=== PATIENT | male | born 1955 | race Two or more races ===

== ENCOUNTER 2022-05-27 05:55 | Day surgery (SDC) | payer OTHER ==
[~2022-05-27] VITALS: Ht 177.8 cm; Wt 83.9 kg
[~2022-05-27 05:55] MED LIST: NEXIUM PO
[2022-05-27] MEDS ORDERED: PEPCID AC20 MG PO (09:10)
[2022-05-27] MEDS ORDERED: PERCOCET 5-3251 EACH PO (09:10)
[2022-05-27] MEDS ORDERED: ZOFRAN8 MG PO (09:11)
[2022-05-27] MEDS ORDERED: DICLOFENAC SODI75 MG PO (09:11)
== END 2022-05-27 11:40 | disposition home or self-care (01) ==
LOC: CIR.AMB 05:55
PROVIDERS: ATTEND Surgery
DX: K80.10 Calculus of gallbladder with chronic cholecystitis without obstruction (principal); Z20.822 Contact with and (suspected) exposure to COVID-19; Z91.013 Allergy to seafood; I10 Essential (primary) hypertension; J45.909 Unspecified asthma, uncomplicated; M19.90 Unspecified osteoarthritis, unspecified site